=== PATIENT | female | born 1985 | race Caucasian/White ===

== ENCOUNTER 2017-08-18 18:15 | Outpatient (CLI) | payer OTHER ==
[~2017-08-18 18:15] MED LIST: ALAVERT5 MG/5 ML; CIPRO500 MG PO; FLAGYL500MG PO; NASONEX17 GM; ORTHO TRI-7 DAYSX1
== END 2017-08-18 18:34 | disposition home or self-care (01) ==
LOC: LAB 18:15
DX: K50.80 Crohn's disease of both small and large intestine without complications (principal); Z92.241 Personal history of systemic steroid therapy; Z92.25 Personal history of immunosuppression therapy; R19.7 Diarrhea, unspecified

== ENCOUNTER 2018-11-01 13:27 | Outpatient (CLI) | payer OTHER | END 2018-11-01 13:39 | disposition home or self-care (01) | LOC: LAB 13:27 | DX: Z34.00 Encounter for supervision of normal first pregnancy, unspecified trimester (principal) ==

== ENCOUNTER → 2018-11-01 | Outpatient (CLI) | payer OTHER | END | disposition home or self-care (01) | LOC: PRENATAL 11:00 | DX: O99.810 Abnormal glucose complicating pregnancy (principal) ==

== ENCOUNTER → 2018-12-31 | Outpatient (CLI) | payer OTHER | END | disposition home or self-care (01) | LOC: PRENATAL 08:00 | DX: O99.89 Other specified diseases and conditions complicating pregnancy, childbirth and the puerperium (principal) ==

== ENCOUNTER 2019-04-19 15:09 | Outpatient (CLI) | payer OTHER | END 2019-04-19 15:54 | disposition home or self-care (01) | LOC: LAB 15:09 | DX: L02.415 Cutaneous abscess of right lower limb (principal) ==

== ENCOUNTER 2019-04-20 14:45 | Inpatient (IN) | payer OTHER ==
[~2019-04-20] VITALS: Ht 170.2 cm; Wt 70.3 kg
[2019-05-12] MEDS ORDERED: HUMIRA40 MG/0.2 SUBCUTANEO (06:47)
[2019-05-12] MEDS ORDERED: PROBIOTIC1 EAC2 PO (06:48)
[2019-05-12] MEDS ORDERED: PRENATAL TABLE1 EACH PO (06:48)
[2019-05-12] MEDS ORDERED: ALAVERT10 M1 PO (06:49)
== END 2019-05-14 12:46 | disposition home or self-care (01) | DRG 807 ==
LOC: LDR 05-12 05:54 → OB/GYN 05-12 16:40
PROVIDERS: ADMIT Specialist
PROC: 10E0XZZ Delivery of Products of Conception, External Approach (ICD-10-PCS; principal; 2019-05-12)
PROC: 0HQ9XZZ Repair Perineum Skin, External Approach (ICD-10-PCS; 2019-05-12)
PROC: 0W8NXZZ Division of Female Perineum, External Approach (ICD-10-PCS; 2019-05-12)
PROC: 3E033VJ Introduction of Other Hormone into Peripheral Vein, Percutaneous Approach (ICD-10-PCS; 2019-05-12)
PROC: 10907ZC Drainage of Amniotic Fluid, Therapeutic from Products of Conception, Via Natural or Artificial Opening (ICD-10-PCS; 2019-05-12)
PROC: 4A1HXCZ Monitoring of Products of Conception, Cardiac Rate, External Approach (ICD-10-PCS; 2019-05-12)
DX: O70.0 First degree perineal laceration during delivery (principal); Z37.0 Single live birth; Z3A.39 39 weeks gestation of pregnancy

== ENCOUNTER 2021-04-27 11:30 | Outpatient (CLI) | payer OTHER ==
[~2021-04-27 11:30] MED LIST changes: +ALAVERT10 M1 PO; +HUMIRA40 MG/0.2 SUBCUTANEO; +PRENATAL TABLE1 EACH PO; +PROBIOTIC1 EAC2 PO
== END 2021-04-27 12:30 | disposition home or self-care (01) ==
LOC: ASH CLINIC 11:30
PROVIDERS: ATTEND Internal Medicine Gastroenterology
DX: U07.1 COVID-19 (principal); Z23 Encounter for immunization